=== PATIENT | female | born 1950 | race Caucasian/White ===

== ENCOUNTER 2016-08-24 14:33 | Day surgery (SDC) | payer BC, MEDICARE ==
[~2016-08-24 14:33] MED LIST: ADULT LOW DOSE81 M1 PO; AMILORIDE HCL/H1 TAB; COUMADIN5 M2 PO; DILANTIN100 MG; FLORINEF PO; FLUDROCORTISON0.1 M1 PO; HYDROXYCHLOROQ200 MG; KEPPRA500 M3 PO; LEVOTHROID25 MCG; LEVOTHYROXINE25 MC3 PO; MIDODRINE HCL5 M1 PO; PAMELOR50 M2 PO; PLAQUENIL200 M1 PO; PREDNISONE2.5 MG; TOPROL XL25 M1 PO; TRAVATAN 0.0042.5 ML; TYLENOL ARTHRI650 MG; ZOCOR10 M1 PO; [UNRECOGNIZED DRUG - OTHER]
[2016-08-24 15:50] LABS: BASO % 0.5 % (0-2); EOS % 4.9 % (0-7); EOSINOPHIL ABSOLUTE COUNT 0.2 tho/cmm (0.0-0.7); HCT-HEMATOCRIT 34.4 % (34.0-49.0); HGB-HEMOGLOBIN 11.6 gm/dl (12.0-15.5); IMMATURE GRANULOCYTES ABSOLUTE 0.01 tho/cmm (0-0.03); IMMATURE GRANULOCYTES PERCENT 0.2 % (0-0.3); LYMPH % 31.4 % (20-45); LYMPH ABSOLUTE COUNT 1.3 tho/cmm (0.8-4.5); MCH (MEAN CORPUSCULAR HGB) 30.4 pg (28.0-32.0); MCHC MEAN CORPUSCULAR HGB CONC 33.7 % (32.0-36.0); MCV (MEAN CELL VOLUME) 90.3 fl (82.0-96.0); MEAN PLATELET VOLUME 9.6 cmc (9.4-12.4); MONO % 10.6 % (0-12); MONOCYTE ABSOLUTE COUNT 0.4 tho/cmm (0.0-1.2); NEUTROPHIL ABSOLUTE COUNT 2.1 tho/cmm (1.6-8.0); NEUTROPHIL-AUTOMATED 2.1 tho/cmm (1.6-8.0); NEUTROPHILS % 52.4 % (40-80); PLATELET COUNT 158 tho/cmm (150-450); RED BLOOD COUNT 3.81 mil/cmm (4.00-5.20); RED CELL DISTRIBUTION WIDTH 14.6 % (12.4-16.4); WHITE BLOOD COUNT 4.1 tho/cmm (4.0-10.0)
[2016-08-24 16:02] LABS: ANION GAP 10 mmol/L (0-20); BLOOD UREA NITROGEN 16 mg/dl (6-24); CALCIUM 9.1 mg/dl (8.5-10.5); CARBON DIOXIDE-VENOUS 33 mmol/L (22-32); CHLORIDE 98 mmol/l (96-110); CREATININE 1.39 mg/dl (0.50-1.10); GLUCOSE 102 mg/dL (70-110); POTASSIUM 3.2 mmol/L (3.7-5.1); SODIUM 138 mmol/L (135-145); eGFR VALUE FOR BLACK 45 mL/Min
[2016-10-18] MEDS ORDERED: AMOXICILLIN500 M1 PO (12:28)
[2016-10-18] MEDS ORDERED: FERROUS SULFATE PO (12:30)
[2016-10-18] MEDS ORDERED: FOLIC ACID PO (12:30)
[2016-10-18] MEDS ORDERED: VITAMIN D250000 UNI1 PO (12:31)
[2016-10-18] MEDS ORDERED: VITAMIN B12 PO (12:31)
[2016-10-18] MEDS ORDERED: [UNRECOGNIZED DRUG - REMARK] (12:32)
== END 2016-08-24 18:00 ==
LOC: RADSP 14:33 → SHSA 14:40
PROVIDERS: Radiology Diagnostic Radiology
PROC: 02PAX3Z Removal of Infusion Device from Heart, External Approach (ICD-10-PCS; principal; 2016-08-24)
PROC: 02H633Z Insertion of Infusion Device into Right Atrium, Percutaneous Approach (ICD-10-PCS; 2016-08-24)
DX: T82.42XA Displacement of vascular dialysis catheter, initial encounter (principal); I12.0 Hypertensive chronic kidney disease with stage 5 chronic kidney disease or end stage renal disease; N18.6 End stage renal disease; Z79.01 Long term (current) use of anticoagulants; Z79.82 Long term (current) use of aspirin; Z79.899 Other long term (current) drug therapy; Z88.8 Allergy status to other drugs, medicaments and biological substances; Z87.891 Personal history of nicotine dependence; Z98.890 Other specified postprocedural states; Z99.2 Dependence on renal dialysis
CPT/HCPCS: C1750; J1644; J2250; J3010; J7030

== ENCOUNTER 2016-10-20 12:01 | Day surgery (SDC) | payer BC, MEDICARE ==
[~2016-10-20 12:01] MED LIST changes: +AMOXICILLIN500 M1 PO; +FERROUS SULFATE PO; +FOLIC ACID PO; +VITAMIN B12 PO; +VITAMIN D250000 UNI1 PO; +[UNRECOGNIZED DRUG - REMARK]
== END 2016-10-20 14:45 ==
LOC: SHSB 12:01
PROC: B51W1ZZ Fluoroscopy of Dialysis Shunt/Fistula using Low Osmolar Contrast (ICD-10-PCS; principal; 2016-10-20)
DX: T82.858A Stenosis of other vascular prosthetic devices, implants and grafts, initial encounter (principal); I12.0 Hypertensive chronic kidney disease with stage 5 chronic kidney disease or end stage renal disease; N18.6 End stage renal disease; Z88.8 Allergy status to other drugs, medicaments and biological substances; Z79.899 Other long term (current) drug therapy; Y83.8 Other surgical procedures as the cause of abnormal reaction of the patient, or of later complication, without mention of misadventure at the time of the procedure; Z98.890 Other specified postprocedural states
CPT/HCPCS: Q9967